=== PATIENT | female | born 1960 | race Asian ===

== ENCOUNTER 2018-12-12 10:27 | Inpatient (IN) | payer MEDICAID ==
[~2018-12-12] VITALS: Ht 154.9 cm; Wt 61.2 kg
--- NOTE | 2018-12-12 10:27 | NUR ---
ED Nurse Note: Patient brought in by ambulance to ED from home, patient is c/o having abdominal pain, nausea, vomiting, and room is spinning. patient denies having eye pain at this moment. blanket provided as patient states she is cold.
[2018-12-12] MEDS ORDERED: Meclizine 25mg tab ORAL ONE (10:45)
[2018-12-12 10:52] VITALS: BP 125/69
[2018-12-12 10:57] LABS: BASOPHILS % (AUTO) 1.4 % (0.0-2.0); EOSINOPHILS % (AUTO) 1.2 % (0.0-3.0); HEMATOCRIT 40.3 % (37.0-47.0); HEMOGLOBIN 13.9 G/DL (12.0-16.0); LYMPHOCYTES % (AUTO) 36.3 % (20.0-45.0); MEAN CORPUSCULAR VOLUME 92 FL (80-99); MONOCYTES % (AUTO) 4.3 % (1.0-10.0); NEUTROPHILS % (AUTO) 56.7 % (45.0-75.0); PLATELET COUNT 211 K/UL (150-450); RED BLOOD COUNT 4.37 M/UL (4.20-5.40); RED CELL DISTRIBUTION WIDTH 12.2 % (11.6-14.8); WHITE BLOOD COUNT 6.3 K/UL (4.8-10.8)
[2018-12-12 11:05] LABS: ANION GAP 10 mmol/L (5-15); BLOOD UREA NITROGEN 13 mg/dL (7-18); CALCIUM 8.7 MG/DL (8.5-10.1); CARBON DIOXIDE 24 MMOL/L (21-32); CHLORIDE 107 MMOL/L (98-107); CREATININE 0.7 MG/DL (0.55-1.30); POTASSIUM 4.5 MMOL/L (3.5-5.1); SODIUM 141 MMOL/L (136-145)
[2018-12-12 11:11] LABS: ALANINE AMINOTRANSFERASE 23 U/L (12-78); ALBUMIN 3.8 G/DL (3.4-5.0); ALBUMIN/GLOBULIN RATIO 1.1 (1.0-2.7); ALKALINE PHOSPHATASE 68 U/L (46-116); ASPARTATE AMINO TRANSFERASE 30 U/L (15-37); BILIRUBIN,TOTAL 0.5 MG/DL (0.2-1.0)
[2018-12-12 12:33] LABS: APPEARANCE,URINE CLEAR; BILIRUBIN, URINE NEGATIVE (NEGATIVE); COLOR,URINE PALE YELLOW; GLUCOSE, URINE (UA) NEGATIVE (NEGATIVE); KETONES,URINE NEGATIVE (NEGATIVE); LEUKOCYTE ESTERASE ,URINE 1+ (NEGATIVE); NITRITE,URINE NEGATIVE (NEGATIVE); PH,URINE 7 (4.5-8.0); PROTEIN,URINE NEGATIVE (NEGATIVE); UROBILINOGEN,URINE NORMAL MG/DL (0.0-1.0)
--- NOTE | 2018-12-12 13:00 | NUR ---
ED Nurse Note: patient went down for CT
--- NOTE | 2018-12-12 13:44 | Diagnostic Imaging Report ---
Indications: Headache and dizziness Technique: Spiral acquisitions obtained through the brain. Angled axial and coronal 5 x 5 mm slices were reconstructed. Total dose length product 1403.8 mGycm. CTDI vol(s) 70.38 mGy. Dose reduction achieved using automated exposure control Comparison: None. Findings: No acute intracranial hemorrhage or edema, mass effect, nor midline shift. Normal yang-white differentiation. Normal-sized ventricles and extra axial CSF spaces. Intact calvarium. The mastoids are clear. Visualized orbits and sinuses are unremarkable. Impression: Negative The CT scanner at [facility] is accredited by the [employer] and the scans are performed using protocols designed to limit radiation exposure to as low as reasonably achievable to attain images of sufficient resolution adequate for diagnostic evaluation.
[2018-12-12 14:22] VITALS: BP 121/72
--- NOTE | 2018-12-12 14:42 | NUR ---
ED Nurse Note: report given to erum rn at 4E. cleaning room pt is down to CT abd.
[2018-12-12] MEDS ORDERED: UNOBMED (14:49)
--- NOTE | 2018-12-12 14:49 | NUR ---
ED Nurse Note: patient came back from CT.
--- NOTE | 2018-12-12 14:58 | Emergency Room Report ---
History of Present Illness General Chief Complaint: Abdominal Pain Source: Patient, Medical Record, EMS Present Illness HPI Patient presents emergency department today complaining of abdominal discomfort and vertigo. Patient states that she was recently seen at [facility] where she was told that she might have retinal detachment. Patient went to see her supervisor corduroy cutting yesterday and was told that she had cataracts. Patient is post be scheduled for intervention. Patient develop acute onset of severe dizziness today. She describes intense vertigo worse with movement of her head. She has associated abdominal discomfort with nausea and vomiting. Denies any chest pain shortness of breath. Denies any dysuria urinary frequency or diarrhea. No other complaints were noted. Symptoms noted to be moderate to severe.No other modifying factors. No other associated signs and symptoms. No other complaints were noted. Allergies: Coded Allergies: No Known Allergies (Unverified , 12/12/18) Patient History Past Medical History: HTN, other - Cataracts Pertinent Family History: none Social History: Denies: smoking, alcohol use, drug use Reviewed Nursing Documentation: PMH: Agreed; PSxH: Agreed Review of Systems All Other Systems: negative except mentioned in HPI Physical Exam Vital Signs Date Time Temp Pulse Resp B/P (MAP) Pulse Ox O2 Delivery O2 Flow Rate FiO2 12/12/18 10:16 99.0 78 16 138/100 98 Room Air Sp02 EP Interpretation: reviewed, normal General Appearance: alert, severe distress Head: normocephalic, atraumatic ENT: normal ENT inspection, hearing grossly normal, normal voice Neck: normal inspection, full range of motion, supple, no bony tend Respiratory: normal inspection, lungs clear, normal breath sounds, no respiratory distress, no retraction, no wheezing Cardiovascular #1: regular rate, rhythm, no edema Gastrointestinal: normal inspection, normal bowel sounds, soft, no guarding, no hernia, tenderness - Epigastric Genitourinary: no CVA tenderness Musculoskeletal: normal inspection, back normal, normal range of motion Neurologic: normal inspection, alert, responsive, speech normal Psychiatric: normal inspection, judgement/insight normal, mood/affect normal Skin: normal inspection, normal color, no rash Medical Decision Making Diagnostic Impression: Primary Impression: Vertigo Additional Impression: Intractable vomiting ER Course Patient presents emergency department today complaining of vertigo. Differential considerations include CVA, benign positional vertigo, electrolyte abnormality, glaucoma just to name a few.Given the severity of the patient's presentation I felt this is a highly complex patient. This patient required extensive workup. Patient's laboratory workup was not impressive. Head CT was negative. Patient was given fluids and Valium as well as meclizine. Symptoms did improve the patient was still having difficulty with ambulation because of intense vertigo. Because of this intensity vertigo I felt the patient require admission. Case was discussed with admitting physician for further treatment. Patient will be admitted to [facility] further treatment. Labs Test 12/12/18 10:32 12/12/18 12:26 White Blood Count 6.3 K/UL (4.8-10.8) Red Blood Count 4.37 M/UL (4.20-5.40) Hemoglobin 13.9 G/DL (12.0-16.0) Hematocrit 40.3 % (37.0-47.0) Mean Corpuscular Volume 92 FL (80-99) Mean Corpuscular Hemoglobin 31.7 PG (27.0-31.0) Mean Corpuscular Hemoglobin Concent 34.4 G/DL (32.0-36.0) Red Cell Distribution Width 12.2 % (11.6-14.8) Platelet Count 211 K/UL (150-450) Mean Platelet Volume 6.6 FL (6.5-10.1) Neutrophils (%) (Auto) 56.7 % (45.0-75.0) Lymphocytes (%) (Auto) 36.3 % (20.0-45.0) Monocytes (%) (Auto) 4.3 % (1.0-10.0) Eosinophils (%) (Auto) 1.2 % (0.0-3.0) Basophils (%) (Auto) 1.4 % (0.0-2.0) Sodium Level 141 MMOL/L (136-145) Potassium Level 4.5 MMOL/L (3.5-5.1) Chloride Level 107 MMOL/L (98-107) Carbon Dioxide Level 24 MMOL/L (21-32) Anion Gap 10 mmol/L (5-15) Blood Urea Nitrogen 13 mg/dL (7-18) Creatinine 0.7 MG/DL (0.55-1.30) Estimat Glomerular Filtration Rate > 60 mL/min (>60) Glucose Level 140 MG/DL (74-106) Calcium Level 8.7 MG/DL (8.5-10.1) Total Bilirubin 0.5 MG/DL (0.2-1.0) Aspartate Amino Transf (AST/SGOT) 30 U/L (15-37) Alanine Aminotransferase (ALT/SGPT) 23 U/L (12-78) Alkaline Phosphatase 68 U/L (46-116) Troponin I 0.000 ng/mL (0.000-0.056) Total Protein 7.4 G/DL (6.4-8.2) Albumin 3.8 G/DL (3.4-5.0) Globulin 3.6 g/dL Albumin/Globulin Ratio 1.1 (1.0-2.7) Lipase 148 U/L (73-393) Urine Color Pale yellow Urine Appearance Clear Urine pH 7 (4.5-8.0) Urine Specific [place] 1.010 (1.005-1.035) Urine Protein Negative (NEGATIVE) Urine Glucose (UA) Negative (NEGATIVE) Urine Ketones Negative (NEGATIVE) Urine Blood Negative (NEGATIVE) Urine Nitrite Negative (NEGATIVE) Urine Bilirubin Negative (NEGATIVE) Urine Urobilinogen Normal MG/DL (0.0-1.0) Urine Leukocyte Esterase 1+ (NEGATIVE) Urine RBC 0 /HPF (0 - 2) Urine WBC 0-2 /HPF (0 - 2) Urine Squamous Epithelial Cells Occasional /LPF Urine Bacteria Occasional /HPF (NONE) EKG Diagnostic Results Rate: normal Rhythm: NSR ST Segments: no acute changes Rhythm Strip Diag. Results EP Interpretation: yes Rate: 60 Rhythm: NSR, no PVC's, no ectopy CT/MRI/US Diagnostic Results CT/MRI/US Diagnostic Results : Imaging Test Ordered: CT head: Negative Last Vital Signs Date Time Temp Pulse Resp B/P (MAP) Pulse Ox O2 Delivery O2 Flow Rate FiO2 12/12/18 14:22 99.0 66 17 121/72 98 Room Air Status: improved Disposition: ADMITTED INPATIENT Condition: Serious Referrals: NOT CHOSEN IPA/,REFERRING (PCP) Agusto Gleason MD Dec 12, 2018 14:58
--- NOTE | 2018-12-12 15:13 | NUR ---
ED Nurse Note: patient is being transferred to 4E with care techliz CHAVEZ, endorsed all belonging list/belongigns.
--- NOTE | 2018-12-12 15:20 | NUR ---
NURSE NOTES: Patient arrived the unite around 1515 by arlene; alert x4, on room air, no sign of distress and shortness of breath; no sign of chest pain; skin intact; IV L-Hand 20G flushes well; belonging lists singed by transferring nurse and receiving nurse; communicated Dr Rodney to get admission order. Bed at lowest position, side rails up x2, breaks engaged. call light within reach. will keep monitoring.
[2018-12-12 15:33] VITALS: BP 121/69
--- NOTE | 2018-12-12 16:25 | Consultation ---
History of Present Illness General Date patient seen: Dec 12, 2018 Time patient seen: 18:00 Chief Complaint: Intractable Vertigo Reason for Consultation: Vertigo, Nausea, Vomiting Present Illness HPI Tracy Fitch is a 58 year old woman with history of HTN, GERD who awoke this morning with acute onset of vertigo, nausea and vomiting. She describes intense vertigo worsened by movement of her head. Denies any chest pain shortness of breath. Denies any dysuria urinary frequency or diarrhea. Patient describes an episode several years ago of right unilateral weakness of face, arm and leg that self resolved and was not reported to her doctor at the time or subsequently. She denies any paresthesias, numbness, weakness, incoordination, vision or hearing changes Allergies: Coded Allergies: No Known Allergies (Unverified , 12/12/18) Medication History Miscellaneous Medications Unable to Obtain Medications (Unable To Obtain Meds), (Reported) Patient History History Provided By: Patient Healthcare decision maker Resuscitation status Full Code Advanced Directive on File No Past Medical/Surgical History Past Medical/Surgical History: (1) GERD (gastroesophageal reflux disease) (2) HTN (hypertension) Review of Systems Constitutional: Reports: malaise, weakness Eye: Reports: no symptoms ENT: Reports: no symptoms Respiratory: Reports: no symptoms Cardiovascular: Reports: no symptoms Gastrointestinal: Reports: abdominal pain, nausea, vomiting Genitourinary: Reports: no symptoms Musculoskeletal: Reports: see HPI Skin: Reports: no symptoms Psychiatric: Reports: no symptoms Neurological: Reports: dizziness Endocrine: Reports: no symptoms Hematologic/Lymphatic: Reports: no symptoms Physical Exam General Appearance: WD/WN, no apparent distress, alert Lines, tubes and drains: peripheral HEENT: normocephalic, atraumatic, anicteric, mucous membranes moist, PERRL, EOMI, pharynx normal, supple, no JVD, other - NO nystagmus on exam or elicited on Hallpike maneuver. Neck: non-tender, normal alignment, supple, normal inspection Respiratory/Chest: chest wall non-tender, normal breath sounds Cardiovascular/Chest: normal peripheral pulses, normal rate Extremities: normal range of motion, non-tender, normal inspection, no calf tenderness, normal capillary refill, no edema Skin Exam: normal pigmentation, warm/dry Neurologic: facilities operator II-XII grossly normal, no motor/sensory deficits, alert, oriented x 3, responsive, normal mood/affect, motor weakness - Mild LUE/ LLE weakness 4/5, other - Normal heel to beltran but some dysmetria on FTN with left hand/ arm. Musculoskeletal: normal muscle bulk Last 24 Hour Vital Signs Date Time Temp Pulse Resp B/P (MAP) Pulse Ox O2 Delivery O2 Flow Rate FiO2 12/12/18 15:43 Room Air 12/12/18 15:33 98.2 63 18 121/69 (86) 98 12/12/18 15:18 99.0 66 17 121/72 98 Room Air 12/12/18 14:22 99.0 66 17 121/72 98 Room Air 12/12/18 10:54 61 20 Room Air 12/12/18 10:52 99.0 61 20 125/69 99 Room Air 12/12/18 10:16 99.0 78 16 138/100 98 Room Air Laboratory Tests Test 12/12/18 10:32 12/12/18 12:26 White Blood Count 6.3 K/UL (4.8-10.8) Red Blood Count 4.37 M/UL (4.20-5.40) Hemoglobin 13.9 G/DL (12.0-16.0) Hematocrit 40.3 % (37.0-47.0) Mean Corpuscular Volume 92 FL (80-99) Mean Corpuscular Hemoglobin 31.7 PG (27.0-31.0) H Mean Corpuscular Hemoglobin Concent 34.4 G/DL (32.0-36.0) Red Cell Distribution Width 12.2 % (11.6-14.8) Platelet Count 211 K/UL (150-450) Mean Platelet Volume 6.6 FL (6.5-10.1) Neutrophils (%) (Auto) 56.7 % (45.0-75.0) Lymphocytes (%) (Auto) 36.3 % (20.0-45.0) Monocytes (%) (Auto) 4.3 % (1.0-10.0) Eosinophils (%) (Auto) 1.2 % (0.0-3.0) Basophils (%) (Auto) 1.4 % (0.0-2.0) Sodium Level 141 MMOL/L (136-145) Potassium Level 4.5 MMOL/L (3.5-5.1) Chloride Level 107 MMOL/L (98-107) Carbon Dioxide Level 24 MMOL/L (21-32) Anion Gap 10 mmol/L (5-15) Blood Urea Nitrogen 13 mg/dL (7-18) Creatinine 0.7 MG/DL (0.55-1.30) Estimat Glomerular Filtration Rate > 60 mL/min (>60) Glucose Level 140 MG/DL (74-106) H Calcium Level 8.7 MG/DL (8.5-10.1) Total Bilirubin 0.5 MG/DL (0.2-1.0) Aspartate Amino Transf (AST/SGOT) 30 U/L (15-37) Alanine Aminotransferase (ALT/SGPT) 23 U/L (12-78) Alkaline Phosphatase 68 U/L (46-116) Troponin I 0.000 ng/mL (0.000-0.056) Total Protein 7.4 G/DL (6.4-8.2) Albumin 3.8 G/DL (3.4-5.0) Globulin 3.6 g/dL Albumin/Globulin Ratio 1.1 (1.0-2.7) Lipase 148 U/L (73-393) Urine Color Pale yellow Urine Appearance Clear Urine pH 7 (4.5-8.0) Urine Specific [place] 1.010 (1.005-1.035) Urine Protein Negative (NEGATIVE) Urine Glucose (UA) Negative (NEGATIVE) Urine Ketones Negative (NEGATIVE) Urine Blood Negative (NEGATIVE) Urine Nitrite Negative (NEGATIVE) Urine Bilirubin Negative (NEGATIVE) Urine Urobilinogen Normal MG/DL (0.0-1.0) Urine Leukocyte Esterase 1+ (NEGATIVE) H Urine RBC 0 /HPF (0 - 2) Urine WBC 0-2 /HPF (0 - 2) Urine Squamous Epithelial Cells Occasional /LPF Urine Bacteria Occasional /HPF (NONE) Height (Feet): 5 Height (Inches): 1.00 Weight (Pounds): 135 Objective Narrative Unable to perform standard [place] Hallpike but modified did not yield increased vertigo or nystagmus . Due to generalized weakness/ malaise was unable to get out of bed and perform gait assessment. Assessment/Plan Problem List: (1) Vertigo Assessment & Plan: Improving now. Continue IVH and antiemetics (Ondansetron/ Meclizine) MRI Brain w/wo contrast for central causes of acute vertigo ICD Codes: R42 - Dizziness and giddiness SNOMED: 859366670 (2) Intractable vomiting Assessment & Plan: Ate dinner and has not vomited since earlier in the day. Continue IVH, antiemetics (Ondasetron/ Meclizine) ICD Codes: R11.10 - Vomiting, unspecified SNOMED: 549705470 Qualifiers: (3) HTN (hypertension) Assessment & Plan: Control BP and maintain < 140/90 ICD Codes: I10 - Essential (primary) hypertension SNOMED: 23480880 Qualifiers: Qualified Codes: I10 - Essential (primary) hypertension (4) TIA (transient ischemic attack) Assessment & Plan: Reported past episode of several hours of face, arm and leg weakness on her right side but states that she never reported it. MRI Brain to r/o acute CVA ICD Codes: G45.9 - Transient cerebral ischemic attack, unspecified SNOMED: 127010961 Status: doing well Pamela Hu N.P. Dec 12, 2018 16:25
--- NOTE | 2018-12-12 16:29 | Diagnostic Imaging Report ---
Indication: Abdominal pain, nausea, vomiting Technique: Spiral acquisitions obtained through the abdomen and pelvis. No oral contrast utilized, per emergency room physician request No IV contrast utilized, per emergency room physician request.. Multiplanar reconstructions were generated. Total dose length product 682.95 mGycm. CTDIvol(s) 13.88 mGy. Dose reduction achieved using automated exposure control Comparison: None Findings: Lack of enteric contrast limits assessment of the GI tract. The appendix is normal. No evidence of diverticulosis or diverticulitis. No small bowel distention. No free or loculated intraperitoneal gas or fluid. Distal esophagus, stomach, duodenum are unremarkable. Lack of IV contrast limits assessment of solid organs. The liver, gallbladder, bile ducts, pancreas, spleen, adrenals, kidneys are all unremarkable. No retroperitoneal or mesenteric mass or adenopathy. No pelvic mass or adenopathy. Uterus and adnexal structures are unremarkable. The bladder is unremarkable. The included lung bases are clear. The bones demonstrated a small bone island within the right posterior ninth rib. There is bilateral L5 spondylolysis. There is minimal spondylolisthesis of L5 on S1. Impression: Limited assessment of the GI tract, due to lack of enteric contrast administration. No definite acute abnormality Bilateral L5 spondylolysis, minimal L5 on S1 grade [address] scanner at [facility] is accredited by the [employer] and the scans are performed using protocols designed to limit radiation exposure to as low as reasonably achievable to attain images of sufficient resolution adequate for diagnostic evaluation.
[2018-12-12] MEDS ORDERED: Milk of Magnesia 30ml Ud ORAL PRN (16:45)
--- NOTE | 2018-12-12 16:45 | History and Physical ---
History of Present Illness General Date patient seen: Dec 12, 2018 Time patient seen: 15:05 Reason for Hospitalization: Abdominal Pain Present Illness HPI 58 year old woman with history of HTN, GERD who presents with nausea and abdominal discomfort along with vertigo that started this mronign Patient states that she was recently seen at [facility] where she was told that she might have retinal detachment. Patient went to see her gasoline engine assembler yesterday and was told that she had cataracts. Patient developed acute onset of severe dizziness today. She describes intense vertigo worse with movement of her head. She has associated abdominal discomfort with nausea and vomiting. Denies any chest pain shortness of breath. Denies any dysuria urinary frequency or diarrhea. No other complaints were noted. Symptoms noted to be moderate to severe.No other modifying factors. No other associated signs and symptoms. No other complaints were noted. Social History: No alcohol or tobacco Family History: No CAD or stroke Allergies: Coded Allergies: No Known Allergies (Unverified , 12/12/18) Medication History Miscellaneous Medications Unable to Obtain Medications (Unable To Obtain Meds), (Reported) Patient History Healthcare decision maker Resuscitation status Advanced Directive on File No Review of Systems Constitutional: Denies: chills, sweats, fever Eye: Denies: eye pain, tearing ENT: Denies: ear pain Respiratory: Denies: cough Cardiovascular: Denies: chest pain Gastrointestinal: Reports: abdominal pain, nausea, vomiting Musculoskeletal: Denies: back pain Skin: Denies: rash Neurological: Reports: dizziness; Denies: headache Physical Exam General Appearance: no apparent distress, alert HEENT: atraumatic, anicteric Neck: normal alignment, supple, normal inspection Respiratory/Chest: lungs clear, normal breath sounds Cardiovascular/Chest: normal rate, regular rhythm Abdomen: non tender, soft, no organomegaly Extremities: non-tender, normal inspection, no calf tenderness 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3 % (37.0-47.0) Mean Corpuscular Volume 92 FL (80-99) Mean Corpuscular Hemoglobin 31.7 PG (27.0-31.0) H Mean Corpuscular Hemoglobin Concent 34.4 G/DL (32.0-36.0) Red Cell Distribution Width 12.2 % (11.6-14.8) Platelet Count 211 K/UL (150-450) Mean Platelet Volume 6.6 FL (6.5-10.1) Neutrophils (%) (Auto) 56.7 % (45.0-75.0) Lymphocytes (%) (Auto) 36.3 % (20.0-45.0) Monocytes (%) (Auto) 4.3 % (1.0-10.0) Eosinophils (%) (Auto) 1.2 % (0.0-3.0) Basophils (%) (Auto) 1.4 % (0.0-2.0) Sodium Level 141 MMOL/L (136-145) Potassium Level 4.5 MMOL/L (3.5-5.1) Chloride Level 107 MMOL/L (98-107) Carbon Dioxide Level 24 MMOL/L (21-32) Anion Gap 10 mmol/L (5-15) Blood Urea Nitrogen 13 mg/dL (7-18) Creatinine 0.7 MG/DL (0.55-1.30) Estimat Glomerular Filtration Rate > 60 mL/min (>60) Glucose Level 140 MG/DL (74-106) H Calcium Level 8.7 MG/DL (8.5-10.1) Total Bilirubin 0.5 MG/DL (0.2-1.0) Aspartate Amino Transf (AST/SGOT) 30 U/L (15-37) Alanine Aminotransferase (ALT/SGPT) 23 U/L (12-78) Alkaline Phosphatase 68 U/L (46-116) Troponin I 0.000 ng/mL (0.000-0.056) Total Protein 7.4 G/DL (6.4-8.2) Albumin 3.8 G/DL (3.4-5.0) Globulin 3.6 g/dL Albumin/Globulin Ratio 1.1 (1.0-2.7) Lipase 148 U/L (73-393) Urine Color Pale yellow Urine Appearance Clear Urine pH 7 (4.5-8.0) Urine Specific [place] 1.010 (1.005-1.035) Urine Protein Negative (NEGATIVE) Urine Glucose (UA) Negative (NEGATIVE) Urine Ketones Negative (NEGATIVE) Urine Blood Negative (NEGATIVE) Urine Nitrite Negative (NEGATIVE) Urine Bilirubin Negative (NEGATIVE) Urine Urobilinogen Normal MG/DL (0.0-1.0) Urine Leukocyte Esterase 1+ (NEGATIVE) H Urine RBC 0 /HPF (0 - 2) Urine WBC 0-2 /HPF (0 - 2) Urine Squamous Epithelial Cells Occasional /LPF Urine Bacteria Occasional /HPF (NONE) Height (Feet): 5 Height (Inches): 1.00 Weight (Pounds): 135 Medications Current Medications Medications (Trade) Dose Ordered Sig/Lexus Route PRN Reason Start Time Stop Time Status Last Admin Dose Admin Acetaminophen (Tylenol) 650 mg Q4H PRN ORAL Mild Pain (Pain Scale 1-3) 12/12/18 16:45 01/11/19 16:44 UNV Dextrose (Dextrose 50%) 25 ml Q30M PRN IV Hypoglycemia 12/12/18 16:45 01/11/19 16:44 UNV Dextrose (Dextrose 50%) 50 ml Q30M PRN IV Hypoglycemia 12/12/18 16:45 01/11/19 16:44 UNV Docusate Sodium (Colace) 100 mg EVERY 12 HOURS ORAL 12/12/18 21:00 01/11/19 20:59 UNV Heparin Sodium (Porcine) (Heparin 5000 units/ml) 5,000 units EVERY 12 HOURS SUBQ 12/12/18 21:00 01/11/19 20:59 UNV Magnesium Hydroxide (Mom) 30 ml HSPRN PRN ORAL Constipation 12/12/18 16:45 01/11/19 16:44 UNV Ondansetron HCl (Zofran) 4 mg Q6H PRN IVP Nausea & Vomiting 12/12/18 16:45 01/11/19 16:44 UNV Assessment/Plan Assessment/Plan 58 year old woman with GERD, HTN who presents with intractable vertigo #Intractable vertigo -admit to medical service -supportive care with IV fluids, anti-emetics, meclizine -Neurology consulted -PT/OT consult #GERD #Nausea vomiting and GI discomfort, non contrast CT negative -supportive care -IV fluids, anti-emetics, Protonix #History of HTN, controlled -continue to monitor pressures -awaiting home med list VTEE PPx heparin Full Code Sánchez Gillis MD Dec 12, 2018 16:45
[2018-12-12] MEDS ORDERED: Meclizine 25mg tab ORAL SCH (17:00)
[2018-12-12] MEDS ORDERED: Gadavist 7.5mMol/7.5ml vial IV PRN (19:30)
--- NOTE | 2018-12-12 19:36 | NUR ---
HAND-OFF: Report given to YOUSIF Carlin.
--- NOTE | 2018-12-12 19:44 | NUR ---
NURSE NOTES: Received patient comfortably sleeping without any complaints.
[2018-12-12 20:00] VITALS: BP 92/65
[2018-12-12] MEDS: Heparin 5000 units/ml inj SUBQ SCH (20:39)
[2018-12-12] MEDS: Docusate 100mg cap ORAL SCH (20:39)
[2018-12-13] VITALS: BP 95/61
[2018-12-13] MEDS: Meclizine 25mg tab ORAL SCH ×5 (00:45→23:06)
--- NOTE | 2018-12-13 01:42 | Neurology Progress Note ---
Interim History Interim History ROS Limited/Unobtainable: No Complaints: Vertigo Events: Some nausea/vomiting before breakfast but none after into late afternoon. Review of Systems Neuro Review of Systems Continues to endorse vertigo/ nausea/ dizziness Objective Physical Exam Last Vital Signs Date Time Temp Pulse Resp B/P (MAP) Pulse Ox O2 Delivery O2 Flow Rate FiO2 12/13/18 00:00 97.6 55 18 95/61 (72) 97 12/12/18 20:04 Room Air Laboratory Tests Test 12/12/18 10:32 12/12/18 12:26 White Blood Count 6.3 K/UL (4.8-10.8) Red Blood Count 4.37 M/UL (4.20-5.40) Hemoglobin 13.9 G/DL (12.0-16.0) Hematocrit 40.3 % (37.0-47.0) Mean Corpuscular Volume 92 FL (80-99) Mean Corpuscular Hemoglobin 31.7 PG (27.0-31.0) H Mean Corpuscular Hemoglobin Concent 34.4 G/DL (32.0-36.0) Red Cell Distribution Width 12.2 % (11.6-14.8) Platelet Count 211 K/UL (150-450) Mean Platelet Volume 6.6 FL (6.5-10.1) Neutrophils (%) (Auto) 56.7 % (45.0-75.0) Lymphocytes (%) (Auto) 36.3 % (20.0-45.0) Monocytes (%) (Auto) 4.3 % (1.0-10.0) Eosinophils (%) (Auto) 1.2 % (0.0-3.0) Basophils (%) (Auto) 1.4 % (0.0-2.0) Sodium Level 141 MMOL/L (136-145) Potassium Level 4.5 MMOL/L (3.5-5.1) Chloride Level 107 MMOL/L (98-107) Carbon Dioxide Level 24 MMOL/L (21-32) Anion Gap 10 mmol/L (5-15) Blood Urea Nitrogen 13 mg/dL (7-18) Creatinine 0.7 MG/DL (0.55-1.30) Estimat Glomerular Filtration Rate > 60 mL/min (>60) Glucose Level 140 MG/DL (74-106) H Calcium Level 8.7 MG/DL (8.5-10.1) Total Bilirubin 0.5 MG/DL (0.2-1.0) Aspartate Amino Transf (AST/SGOT) 30 U/L (15-37) Alanine Aminotransferase (ALT/SGPT) 23 U/L (12-78) Alkaline Phosphatase 68 U/L (46-116) Troponin I 0.000 ng/mL (0.000-0.056) Total Protein 7.4 G/DL (6.4-8.2) Albumin 3.8 G/DL (3.4-5.0) Globulin 3.6 g/dL Albumin/Globulin Ratio 1.1 (1.0-2.7) Lipase 148 U/L (73-393) Urine Color Pale yellow Urine Appearance Clear Urine pH 7 (4.5-8.0) Urine Specific Alpine 1.010 (1.005-1.035) Urine Protein Negative (NEGATIVE) Urine Glucose (UA) Negative (NEGATIVE) Urine Ketones Negative (NEGATIVE) Urine Blood Negative (NEGATIVE) Urine Nitrite Negative (NEGATIVE) Urine Bilirubin Negative (NEGATIVE) Urine Urobilinogen Normal MG/DL (0.0-1.0) Urine Leukocyte Esterase 1+ (NEGATIVE) H Urine RBC 0 /HPF (0 - 2) Urine WBC 0-2 /HPF (0 - 2) Urine Squamous Epithelial Cells Occasional /LPF Urine Bacteria Occasional /HPF (NONE) General: well developed, well nourished Head: normocophalic Neck: no rigidity EENT: benign Neurologic Exam Mental Status: awake, alert, oriented x4, normal cognition, normal recent memory Speech: normal speech Language: normal language, no aphasia Cranial Nerve II: visual barnes Cranial Nerves III, IV, : PERRLA, EOMI Cranial Nerve V: normal facial sensations Cranial Nerve VII: no facial asymmetry Cranial Nerve VIII: normal hearing Cranial Nerve IX: normal palate elevation Cranial Nerve X: no voice hoarseness Cranial Nerve XI: SCM symmetric Cranial Nerve XII: tongue midline Motor System: normal muscle tone, strength 5/5 Coordination: normal finger to nose bilaterally, normal heel to beltran bilaterally Impression/Recommendations Problems: (1) Vertigo Assessment & Plan: Stable but still present, mildly. Continue IVH and antiemetics (Ondansetron/ Meclizine) MRI with mildly depressed cerebellar tonsils- discuss with radiology for exact length of depression. (2) Intractable vomiting Assessment & Plan: Continue IVH, antiemetics (Ondasetron/ Meclizine) (3) HTN (hypertension) Assessment & Plan: Control BP and maintain < 140/90 (4) TIA (transient ischemic attack) Assessment & Plan: Reported past episode of several hours of face, arm and leg weakness on her right side but states that she never reported it. No evidence of acute CVA Status: doing well Diagnostic Impression Get up with PT/OT for eval Discuss MRI with radiology re Cerebellar tonsil finding Continue Q4 Hr Neuro Obs Antiemetics and IVH Recommendations At minimum will need to follow up with Neuro as outpatient and MRI repeat again in 1 year. PT/OT Eval for safe ambulation Pamela Jose N.P. Dec 13, 2018 01:42
[2018-12-13 04:13] VITALS: BP 92/59
--- NOTE | 2018-12-13 07:17 | NUR ---
HAND-OFF: Report given to Josseline Scott RN.
--- NOTE | 2018-12-13 07:29 | NUR ---
NURSE NOTES: Patient alert x4, on room air, no sign of shortness of breath; no sign of distress; no sign of chest pain; IV Left-Hand, flushes well; bed at lowest position, side rails up x2, breaks engaged; call light within reach; will keep monitoring.
[2018-12-13 07:37] LABS: ANION GAP 10 mmol/L (5-15); BLOOD UREA NITROGEN 12 mg/dL (7-18); CALCIUM 8.6 MG/DL (8.5-10.1); CARBON DIOXIDE 27 MMOL/L (21-32); CHLORIDE 106 MMOL/L (98-107); CREATININE 0.8 MG/DL (0.55-1.30); POTASSIUM 3.6 MMOL/L (3.5-5.1); SODIUM 143 MMOL/L (136-145)
[2018-12-13 07:43] LABS: BASOPHILS % (AUTO) 0.9 % (0.0-2.0); EOSINOPHILS % (AUTO) 1.3 % (0.0-3.0); HEMOGLOBIN 12.8 G/DL (12.0-16.0); LYMPHOCYTES % (AUTO) 39.6 % (20.0-45.0); MEAN CORPUSCULAR VOLUME 93 FL (80-99); MONOCYTES % (AUTO) 5.8 % (1.0-10.0); NEUTROPHILS % (AUTO) 52.5 % (45.0-75.0); PLATELET COUNT 218 K/UL (150-450); RED CELL DISTRIBUTION WIDTH 11.8 % (11.6-14.8); WHITE BLOOD COUNT 6.1 K/UL (4.8-10.8)
[2018-12-13 08:00] VITALS: BP 95/64
[2018-12-13] MEDS: Docusate 100mg cap ORAL SCH ×2 (08:38→20:09)
[2018-12-13] MEDS: Heparin 5000 units/ml inj SUBQ SCH ×2 (08:40→20:16)
[2018-12-13] MEDS: Pantoprazole Inj IVP SCH (09:28)
--- NOTE | 2018-12-13 09:40 | NUR ---
PT EVALUATION NOTE Patient seen for initial evaluation, see complete evaluation for details. Patient presents with generalized weakness and impaired functional mobility. Patient will benefit from skilled inpatient PT intervention to address strength, balance, safety, endurance and functional mobility. Anticipate discharge home once cleared by MD. No DME needs anticipated at this time. Addendum: 12/13/18 at 1319 by RENITA BISHOP PT Amended: Links added.
[2018-12-13 12:00] VITALS: BP 93/57
--- NOTE | 2018-12-13 12:02 | NUR ---
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 INTRACTABLE VOMITING VS: BP 138/100, P 78, T 99.0, RR 16, SpO2 98 RBC 4.10, Glucose 140 IS:ANTIVERT 25mg VALIUM 10mg NS x1L IV ZOFRAN 4mg IVP ADMITTED TO MED/SURG DC PLAN: RETURN HOME
--- NOTE | 2018-12-13 12:57 | General Progress Note ---
Assessment/Plan Assessment/Plan 58 year old woman with GERD, HTN who presents with intractable vertigo #Intractable vertigo, improved -continue supportive care with IV fluids, anti-emetics, meclizine -Neurology consult appreciated, MRI brain ordered -PT/OT eval #GERD #Nausea vomiting and GI discomfort, non contrast CT negative -continue supportive care -IV fluids, anti-emetics, Protonix #History of HTN, controlled -continue to monitor pressures -awaiting home med list VTEE PPx heparin Full Code Subjective Date patient seen: Dec 13, 2018 Time patient seen: 09:45 ROS Limited/Unobtainable: No Constitutional: Denies: chills, fever Cardiovascular: Denies: chest pain, edema, irregular heart rate, lightheadedness, palpitations Respiratory: Denies: cough, orthopnea, shortness of breath Gastrointestinal/Abdominal: Denies: abdomen distended, abdominal pain Genitourinary: Denies: burning, discharge Neurologic/Psychiatric: Denies: anxiety Endocrine: Denies: excessive sweating Hematologic/Lymphatic: Denies: anemia Allergies: Coded Allergies: No Known Allergies (Unverified , 12/12/18) Subjective Medicine follow up for vertigo and nausea. Vertigo symptoms improved but vomited after breakfast today. Objective Last 24 Hour Vital Signs Date Time Temp Pulse Resp B/P (MAP) Pulse Ox O2 Delivery O2 Flow Rate FiO2 12/13/18 12:00 98.4 54 19 93/57 (69) 94 12/13/18 09:00 Room Air 12/13/18 08:00 98.2 57 18 95/64 (74) 95 12/13/18 04:13 97.7 54 17 92/59 (70) 97 12/13/18 00:00 97.6 55 18 95/61 (72) 97 12/12/18 20:04 Room Air 12/12/18 20:00 98.1 61 20 92/65 (74) 96 12/12/18 17:00 62 75 79 12/12/18 15:43 Room Air 12/12/18 15:33 98.2 63 18 121/69 (86) 98 12/12/18 15:18 99.0 66 17 121/72 98 Room Air 12/12/18 14:22 99.0 66 17 121/72 98 Room Air Intake and Output 12/12/18 12/13/18 19:00 07:00 Intake Total 240 ml Balance 240 ml Intake Oral 240 ml # Voids 1 Laboratory Tests 12/13/18 05:15: White Blood Count 6.1, Red Blood Count 4.10L, Hemoglobin 12.8, Hematocrit 38.0, Mean Corpuscular Volume 93, Mean Corpuscular Hemoglobin 31.3H, Mean Corpuscular Hemoglobin Concent 33.7, Red Cell Distribution Width 11.8, Platelet Count 218, Mean Platelet Volume 6.4L, Neutrophils (%) (Auto) 52.5, Lymphocytes (%) (Auto) 39.6, Monocytes (%) (Auto) 5.8, Eosinophils (%) (Auto) 1.3, Basophils (%) (Auto ) 0.9, Sodium Level 143, Potassium Level 3.6, Chloride Level 106, Carbon Dioxide Level 27, Anion Gap 10, Blood Urea Nitrogen 12, Creatinine 0.8, Estimat Glomerular Filtration Rate > 60, Glucose Level 84, Calcium Level 8.6, Thyroid Stimulating Hormone (TSH) 1.541 Height (Feet): 5 Height (Inches): 1.00 Weight (Pounds): 135 General Appearance: no apparent distress, alert Neck: non-tender, normal alignment Cardiovascular: normal rate, regular rhythm Respiratory/Chest: lungs clear, no respiratory distress Abdomen: non tender, soft Extremities: non-tender, normal inspection Sánchez Gillis MD Dec 13, 2018 12:57
--- NOTE | 2018-12-13 13:50 | NUR ---
NURSE NOTES: Patient left the floor for MRI.
--- NOTE | 2018-12-13 15:45 | Diagnostic Imaging Report ---
Indication: Nausea, vomiting, vertigo, headache Technique: sagittal T1 fast spin echo, axial T1 and T2 FLAIR PROPELLER, axial T2 FS PROPELLER, T2* GRE, axial diffusion weighted images, post contrast axial and coronal T1 FLAIR PROPELLER images. ADC and exponential ADC maps generated Comparison: CT scan of the brain 12/12/2018 Findings: . No abnormal areas of restricted diffusion to suggest acute infarction. No acute hemorrhage or edema. No mass effect nor midline shift. No abnormal contrast enhancement. Normal size ventricles and extra axial CSF spaces. Visualized orbits and sinuses are unremarkable. The vascular flow voids are preserved. Cerebellar tonsils are somewhat low-lying but not frankly herniated.. Impression: Negative No evidence of acute intracranial bleed, mass effect, infarct, or contrast enhancing lesion
[2018-12-13 16:00] VITALS: BP 94/66
--- NOTE | 2018-12-13 19:38 | NUR ---
HAND-OFF: Report given to YOUSIF Sotomayor.
[2018-12-13 20:00] VITALS: BP 105/59
--- NOTE | 2018-12-13 20:30 | NUR ---
NURSE NOTES: Pt is in bed, awake and alert. No acute distress noted. Pt complains of dizziness, nausea. Zofran 4mg IVP given as ordered PRN. Pt was instructed to call for assistance before getting out of bed and ambulating. Pt is requesting hamburger and coke, pt was reminded that she is on clear liquid diet. Bed low in position,side rails up and call light within reach. Pt will be monitored.
[2018-12-14] VITALS: BP 93/60
[2018-12-14 04:00] VITALS: BP 101/63
--- NOTE | 2018-12-14 04:00 | NUR ---
NURSE NOTES: Pt is in bed, Asleep. NO acute distress noted. Vitals stable.
[2018-12-14] MEDS: Meclizine 25mg tab ORAL SCH ×4 (05:58→23:04)
--- NOTE | 2018-12-14 07:20 | NUR ---
HAND-OFF: Report given to Jayden Oro RN. Pt is in bed, awake and alert. No distress noted.
[2018-12-14 08:00] VITALS: BP 100/55
--- NOTE | 2018-12-14 08:00 | NUR ---
NURSE NOTES: pt in bed with no sob nor in any form of distress noted. no episode of vertigo at this time. bed in lowest position. call light within reach at all time. will continue to monitor
[2018-12-14] MEDS: Pantoprazole Inj IVP SCH (08:25)
[2018-12-14] MEDS: Docusate 100mg cap ORAL SCH ×2 (08:25→21:01)
[2018-12-14] MEDS: Heparin 5000 units/ml inj SUBQ SCH ×2 (08:29→21:06)
--- NOTE | 2018-12-14 09:49 | General Progress Note ---
Assessment/Plan Assessment/Plan 58 year old woman with GERD, HTN who presents with intractable vertigo #Intractable vertigo, improved -continue supportive care with IV fluids, anti-emetics, meclizine -MRI brain results without acute findings -Neurology following -PT/OT eval #GERD #Nausea vomiting and GI discomfort, non contrast CT negative -improving -continue supportive care -IV fluids, anti-emetics, Protonix -Advance diet to regular today #History of HTN, controlled -continue to monitor pressures VTE PPx heparin Full Code Subjective Date patient seen: Dec 14, 2018 Time patient seen: 09:45 ROS Limited/Unobtainable: No Constitutional: Denies: chills, fever Cardiovascular: Denies: chest pain, edema Respiratory: Denies: cough, orthopnea Gastrointestinal/Abdominal: Reports: nausea; Denies: abdominal pain, vomiting Genitourinary: Denies: burning Neurologic/Psychiatric: Denies: depressed Allergies: Coded Allergies: No Known Allergies (Unverified , 12/12/18) Subjective Medicine follow up for vertigo and nausea. Symptoms improving, ambulating independently but does not feel well enough to go home yet. Objective Last 24 Hour Vital Signs Date Time Temp Pulse Resp B/P (MAP) Pulse Ox O2 Delivery O2 Flow Rate FiO2 12/14/18 09:06 Room Air 12/14/18 08:00 98.4 57 16 100/55 (70) 96 12/14/18 04:00 97.5 50 16 101/63 (76) 96 12/14/18 00:00 98.2 50 17 93/60 (71) 97 12/13/18 21:00 Room Air 12/13/18 20:00 98.7 50 16 105/59 (74) 97 12/13/18 16:00 98.2 55 19 94/66 (75) 95 12/13/18 12:00 98.4 54 19 93/57 (69) 94 Intake and Output 12/13/18 12/14/18 18:59 06:59 Intake Total 1200 ml Balance 1200 ml Intake Oral 1200 ml # Voids 3 2 Height (Feet): 5 Height (Inches): 1.00 Weight (Pounds): 135 General Appearance: no apparent distress, alert Neck: supple, normal inspection Cardiovascular: normal peripheral pulses, normal rate, regular rhythm Respiratory/Chest: lungs clear, normal breath sounds Abdomen: non tender, soft Molazadeh-Yazdi,Sánchez MD Dec 14, 2018 09:49
[2018-12-14 11:26] VITALS: BP 116/79
--- NOTE | 2018-12-14 15:02 | NUR ---
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 INTRACTABLE VOMITING VS: BP 93/60, P 50, T 97.5, RR 16, SpO2 98 IS: PROTONIX 40mg IVP ANTIVERT 25mg HEPARIN SUBQ MED/SURG STATUS
--- NOTE | 2018-12-14 15:47 | Neurology Progress Note ---
Interim History Interim History ROS Limited/Unobtainable: No Complaints: Vertigo Events: No vomiting today. Ambulating and eating. Some neck spasm and pain. Interim History No new or worsening symptoms today, with near resolution of vertigo, patient is ambulatory. Objective Physical Exam Last Vital Signs Date Time Temp Pulse Resp B/P (MAP) Pulse Ox O2 Delivery O2 Flow Rate FiO2 12/14/18 11:26 98.0 63 16 116/79 (91) 98 12/14/18 09:06 Room Air General: well developed, well nourished Head: normocophalic Neck: no rigidity EENT: benign Neurologic Exam Mental Status: awake, alert, oriented x4, normal cognition, normal recent memory Speech: normal speech Language: normal language, no aphasia Cranial Nerve II: visual barnes Cranial Nerves III, IV, : PERRLA, EOMI Cranial Nerve V: normal facial sensations Cranial Nerve VII: no facial asymmetry Cranial Nerve VIII: normal hearing Cranial Nerve IX: normal palate elevation Cranial Nerve X: no voice hoarseness Cranial Nerve XI: SCM symmetric Cranial Nerve XII: tongue midline Motor System: normal muscle tone, strength 5/5 Coordination: normal finger to nose bilaterally, normal heel to beltran bilaterally, negative Romberg test Stance: normal Gait: stable, heel + toe gait - A little shaky but able to do, other - Broad based gait Impression/Recommendations Problems: (1) Vertigo Assessment & Plan: Nearly resolved with patient ambulatory. Discussed seeking care if these symptoms reoccur and follow up with her PCP. She may take a prescription home of meclizine (25-100mg divided bid-tid) as needed, if she has any ongoing symptoms. MRI with mildly depressed cerebellar tonsils- discuss with radiology for exact length of depression. Unable to reach anyone in radiology- called twice. Old number listed on report- no longer in service and no voicemail for new number available. (2) Intractable vomiting Assessment & Plan: Resolved. (3) HTN (hypertension) Assessment & Plan: Control BP and maintain < 140/90 (4) TIA (transient ischemic attack) Assessment & Plan: Reported past episode of several hours of face, arm and leg weakness on her right side but states that she never reported it. No evidence of acute CVA on MRI. (5) Muscle spasms of neck Assessment & Plan: Recommend 3-5 day trial of spasmolytic. Will prescribed Flexeril 10mg TID. May send home with limited rx if relief from this overnight. Okay for discharge from a neurological perspective. Instructions given to patient to follow up with MRI Brain again in 1 year as well as follow up with primary. Status: doing well Diagnostic Impression Get up with PT/OT for eval Discuss MRI with radiology re Cerebellar tonsil finding Continue Q4 Hr Neuro Obs Antiemetics and IVH Recommendations At minimum will need to follow up with Neuro as outpatient and MRI repeat again in 1 year. Okay for discharge from a neurological perspective. Pamela Hu N.P. Dec 14, 2018 15:47
[2018-12-14 16:00] VITALS: BP 105/74
[2018-12-14] MEDS ORDERED: Cyclobenzaprine 10mg Tab ORAL PRN (16:30)
--- NOTE | 2018-12-14 19:27 | NUR ---
HAND-OFF: Report given to YOUSIF Beltran.
--- NOTE | 2018-12-14 19:45 | NUR ---
NURSE NOTES: PATIENT IN BED, IN STABLE CONDITION. ON RA, NO SOB, NO ACUTE DISTRESS, NO C/O PAIN. L HAND SALINE LOCK INTACT, PATENT. BED IN LOWEST POSITION, LOCKED, ALARMS ON. CALL LIGHT IN REACH.
[2018-12-14 20:00] VITALS: BP 108/72
[2018-12-15] VITALS: BP 97/63
[2018-12-15 04:00] VITALS: BP 109/66
[2018-12-15] MEDS: Meclizine 25mg tab ORAL SCH ×4 (05:32→23:49)
[2018-12-15 06:51] LABS: ANION GAP 8 mmol/L (5-15); BLOOD UREA NITROGEN 11 mg/dL (7-18); CALCIUM 8.9 MG/DL (8.5-10.1); CARBON DIOXIDE 28 MMOL/L (21-32); CHLORIDE 108 MMOL/L (98-107); CREATININE 0.8 MG/DL (0.55-1.30); POTASSIUM 3.6 MMOL/L (3.5-5.1); SODIUM 143 MMOL/L (136-145)
[2018-12-15 06:58] LABS: EOSINOPHILS % (AUTO) 1.9 % (0.0-3.0); HEMATOCRIT 38.4 % (37.0-47.0); HEMOGLOBIN 13.3 G/DL (12.0-16.0); LYMPHOCYTES % (AUTO) 40.4 % (20.0-45.0); MEAN CORPUSCULAR VOLUME 92 FL (80-99); MONOCYTES % (AUTO) 6.1 % (1.0-10.0); NEUTROPHILS % (AUTO) 50.6 % (45.0-75.0); PLATELET COUNT 219 K/UL (150-450); RED CELL DISTRIBUTION WIDTH 11.7 % (11.6-14.8); WHITE BLOOD COUNT 5.8 K/UL (4.8-10.8)
--- NOTE | 2018-12-15 07:22 | NUR ---
HAND-OFF: Report given to Jayden DODD.
--- NOTE | 2018-12-15 07:27 | NUR ---
NURSE NOTES: received report from YOUSIF Beltran. patient in bed. sleeping. no respiratory distress noted. bed in the lowest position. call light within reach. will continue to monitor.
[2018-12-15 08:00] VITALS: BP 112/71
[2018-12-15] MEDS: Docusate 100mg cap ORAL SCH ×2 (09:16→20:38)
[2018-12-15] MEDS: Pantoprazole Inj IVP SCH (09:16)
[2018-12-15] MEDS: Heparin 5000 units/ml inj SUBQ SCH ×2 (09:18→20:38)
[2018-12-15 12:00] VITALS: BP 123/79
--- NOTE | 2018-12-15 13:22 | General Progress Note ---
Assessment/Plan Status: progressing Status Narrative 58 year old woman with GERD, HTN who presents with intractable vertigo Assessment/Plan #Intractable vertigo, improved -continue supportive care with IV fluids, anti-emetics, meclizine -MRI brain results without acute findings -Neurology following -PT/OT eval #GERD #Nausea vomiting and GI discomfort, non contrast CT negative -improving -continue supportive care -IV fluids, anti-emetics, Protonix -advanced diet #History of HTN, controlled -continue to monitor pressures VTE PPx heparin Full Code Disposition: Once the patient is stable to leave the hospital, I anticipate the patient will likely be discharged to the following environment:Home I spent 45 minutes on this patient's case, and 23 minutes was dedicated to counseling and/or care coordination. Time of note may not reflect time of encounter. Subjective Date patient seen: Dec 15, 2018 Time patient seen: 13:22 ROS Limited/Unobtainable: No Constitutional: Reports: no symptoms, malaise, weakness HEENT: Reports: other - vertigo Respiratory: Reports: no symptoms Gastrointestinal/Abdominal: Reports: no symptoms Genitourinary: Reports: no symptoms Neurologic/Psychiatric: Reports: no symptoms Endocrine: Reports: no symptoms Hematologic/Lymphatic: Reports: no symptoms Allergies: Coded Allergies: No Known Allergies (Unverified , 12/12/18) Subjective Events of overnight noted Chart reviewed Vertigo improving somewhat No vomiting overnight Patient resting Objective Last 24 Hour Vital Signs Date Time Temp Pulse Resp B/P (MAP) Pulse Ox O2 Delivery O2 Flow Rate FiO2 12/15/18 09:00 Room Air 12/15/18 08:00 97.5 59 18 112/71 (85) 96 12/15/18 04:00 97.5 55 18 109/66 (80) 96 12/15/18 00:00 98.1 56 16 97/63 (74) 94 12/14/18 21:00 Room Air 12/14/18 20:00 98.3 65 18 108/72 (84) 99 12/14/18 17:44 98.0 12/14/18 16:00 98.5 69 16 105/74 (84) 95 Intake and Output 12/14/18 12/15/18 18:59 06:59 Intake Total 960 ml 280 ml Balance 960 ml 280 ml Intake Oral 960 ml 280 ml # Voids 3 2 Laboratory Tests 12/15/18 05:25: White Blood Count 5.8, Red Blood Count 4.20, Hemoglobin 13.3, Hematocrit 38.4, Mean Corpuscular Volume 92, Mean Corpuscular Hemoglobin 31.6H, Mean Corpuscular Hemoglobin Concent 34.5, Red Cell Distribution Width 11.7, Platelet Count 219, Mean Platelet Volume 6.7, Neutrophils (%) (Auto) 50.6, Lymphocytes (%) (Auto) 40.4, Monocytes (%) (Auto) 6.1, Eosinophils (%) (Auto) 1.9, Basophils (%) (Auto ) 1.0, Sodium Level 143, Potassium Level 3.6, Chloride Level 108H, Carbon Dioxide Level 28, Anion Gap 8, Blood Urea Nitrogen 11, Creatinine 0.8, Estimat Glomerular Filtration Rate > 60, Glucose Level 91, Calcium Level 8.9 Height (Feet): 5 Height (Inches): 1.00 Weight (Pounds): 135 Joe Max MD Dec 15, 2018 13:22
--- NOTE | 2018-12-15 14:17 | NUR ---
CASE MANAGEMENT: REVIEW 12/15/2018 SI:VERTIGO T 98.1 HR 66 RR 18 B/P 123/79 SATS 96% ON RA CL 108 IS:PROTONIX IV QD ANTIVERT PO Q6H MED/SURG STATUS PLAN OF CARE: PT EVAL NEURO CHECKS
--- NOTE | 2018-12-15 15:43 | Neurology Progress Note ---
Interim History Interim History ROS Limited/Unobtainable: No Complaints: Vertigo Events: Significantly improved today. Ambulating and eating. Review of Systems Neuro Review of Systems Negative for dizziness/vertigo, nausea, vomiting, or neck pain/spasm. Now complaining of ear pain. All Systems: reviewed and negative except above Objective Physical Exam Last Vital Signs Date Time Temp Pulse Resp B/P (MAP) Pulse Ox O2 Delivery O2 Flow Rate FiO2 12/15/18 12:00 98.1 66 18 123/79 (94) 96 12/15/18 09:00 Room Air Laboratory Tests Test 12/15/18 05:25 White Blood Count 5.8 K/UL (4.8-10.8) Red Blood Count 4.20 M/UL (4.20-5.40) Hemoglobin 13.3 G/DL (12.0-16.0) Hematocrit 38.4 % (37.0-47.0) Mean Corpuscular Volume 92 FL (80-99) Mean Corpuscular Hemoglobin 31.6 PG (27.0-31.0) H Mean Corpuscular Hemoglobin Concent 34.5 G/DL (32.0-36.0) Red Cell Distribution Width 11.7 % (11.6-14.8) Platelet Count 219 K/UL (150-450) Mean Platelet Volume 6.7 FL (6.5-10.1) Neutrophils (%) (Auto) 50.6 % (45.0-75.0) Lymphocytes (%) (Auto) 40.4 % (20.0-45.0) Monocytes (%) (Auto) 6.1 % (1.0-10.0) Eosinophils (%) (Auto) 1.9 % (0.0-3.0) Basophils (%) (Auto) 1.0 % (0.0-2.0) Sodium Level 143 MMOL/L (136-145) Potassium Level 3.6 MMOL/L (3.5-5.1) Chloride Level 108 MMOL/L (98-107) H Carbon Dioxide Level 28 MMOL/L (21-32) Anion Gap 8 mmol/L (5-15) Blood Urea Nitrogen 11 mg/dL (7-18) Creatinine 0.8 MG/DL (0.55-1.30) Estimat Glomerular Filtration Rate > 60 mL/min (>60) Glucose Level 91 MG/DL (74-106) Calcium Level 8.9 MG/DL (8.5-10.1) General: well developed, well nourished, no acute distress Head: normocophalic, atraumatic Neck: no rigidity EENT: benign Neurologic Exam Mental Status: awake, alert, oriented x4, normal cognition, normal recent memory Speech: normal speech Language: normal language, no aphasia Cranial Nerve II: visual barnes, no papilledema Cranial Nerves III, IV, : PERRLA, EOMI Cranial Nerve V: normal facial sensations Cranial Nerve VII: no facial asymmetry Cranial Nerve VIII: normal hearing Cranial Nerve IX: normal palate elevation Cranial Nerve X: no voice hoarseness Cranial Nerve XI: SCM symmetric Cranial Nerve XII: tongue midline, no tongue atrophy/fasciculations Motor System: normal muscle tone, strength 5/5, no involuntary movement, no muscle wasting Sensory: normal pinprick, normal light touch, normal position sense, normal graphesthesia Coordination: normal finger to nose bilaterally, normal heel to beltran bilaterally, negative Romberg test Stance: normal Gait: stable, heel + toe gait - A little shaky but able to do, other - Broad based gait Impression/Recommendations Problems: (1) Vertigo Assessment & Plan: Resolved. Discussed seeking care if these symptoms reoccur and follow up with her PCP. She may take a prescription home of meclizine (25-100mg divided bid-tid) as needed, if she has any ongoing symptoms. MRI with mildly depressed cerebellar tonsils- discuss with radiology for exact length of depression. Unable to reach anyone in radiology- called twice. Old number listed on report- no longer in service and no voicemail for new number available. (2) Intractable vomiting Assessment & Plan: Resolved. (3) HTN (hypertension) Assessment & Plan: Control BP and maintain < 140/90 (4) TIA (transient ischemic attack) Assessment & Plan: Reported past episode of several hours of face, arm and leg weakness on her right side but states that she never reported it. No evidence of acute or chronic CVA/ recent TIA on MRI. (5) Muscle spasms of neck Assessment & Plan: Recommend 3-5 day trial of spasmolytic. Will prescribed Flexeril 10mg TID. May send home with limited rx if relief from this overnight. Okay for discharge from a neurological perspective. Instructions given to patient to follow up with MRI Brain again in 1 year as well as follow up with primary. Status: doing well Diagnostic Impression Get up with PT/OT for eval Discuss MRI with radiology re Cerebellar tonsil finding Continue Q4 Hr Neuro Obs May discharge with prescription of Meclizine 25mg #15 and Flexeril 10mg #15 - have communicated this to primary team and patient. Recommendations At minimum will need to follow up with Neuro as outpatient and MRI repeat again in 1 year. Okay for discharge from a neurological perspective. Pamela Hu N.P. Dec 15, 2018 15:43
[2018-12-15 16:00] VITALS: BP 130/83
--- NOTE | 2018-12-15 19:05 | NUR ---
HAND-OFF: Report given to YOUSIF Beltran.
--- NOTE | 2018-12-15 19:30 | NUR ---
NURSE NOTES: PATIENT IN BED, ASLEEP. ON RA, NO SOB, NO ACUTE DISTRESS, NO C/O PAIN. LH IV INTACT, PATENT, SALINE LOCK. IN STABLE CONDITION. BED IN LOWEST POSITION, LOCKED, ALARMS ON. CALL LIGHT IN REACH.
[2018-12-15 20:00] VITALS: BP 110/73
[2018-12-16] VITALS: BP 104/65
[2018-12-16 04:00] VITALS: BP 102/68
[2018-12-16] MEDS: Meclizine 25mg tab ORAL SCH ×3 (06:12→17:11)
--- NOTE | 2018-12-16 07:26 | NUR ---
HAND-OFF: Report given to Jo DODD.
--- NOTE | 2018-12-16 07:29 | NUR ---
NURSE NOTES: Received report from YOUSIF Beltran. Pt ambulating in the halls, spoke with pt, pt denies pain, vertigo, dizziness, nausea, numbness or tingling. Pt's room in clean and free from clutter, bed in lowest position, call light on the bed.
[2018-12-16 08:00] VITALS: BP 125/85
[2018-12-16] MEDS: Pantoprazole Inj IVP SCH (08:09)
[2018-12-16] MEDS: Docusate 100mg cap ORAL SCH (08:09)
[2018-12-16] MEDS: Heparin 5000 units/ml inj SUBQ SCH (08:10)
--- NOTE | 2018-12-16 10:23 | Neurology Progress Note ---
Interim History Interim History ROS Limited/Unobtainable: No Complaints: Vertigo Events: No vomiting today. Ambulating and eating. Improneck spasm and pain. Waiting Objective Physical Exam Last Vital Signs Date Time Temp Pulse Resp B/P (MAP) Pulse Ox O2 Delivery O2 Flow Rate FiO2 12/16/18 09:00 Room Air 12/16/18 08:00 98.1 82 18 125/85 (98) 98 General: well developed, well nourished Head: normocophalic Neck: no rigidity EENT: benign Neurologic Exam Mental Status: awake, alert, oriented x4, normal cognition, normal recent memory Speech: normal speech Language: normal language, no aphasia Cranial Nerve II: visual barnes Cranial Nerves III, IV, : PERRLA, EOMI Cranial Nerve V: normal facial sensations Cranial Nerve VII: no facial asymmetry Cranial Nerve VIII: normal hearing Cranial Nerve IX: normal palate elevation Cranial Nerve X: no voice hoarseness Cranial Nerve XI: SCM symmetric Cranial Nerve XII: tongue midline Motor System: normal muscle tone, strength 5/5 Coordination: normal finger to nose bilaterally, normal heel to beltran bilaterally, negative Romberg test Stance: normal Gait: stable, heel + toe gait - A little shaky but able to do, other - Broad based gait Impression/Recommendations Status: progressing Recommendations ok to Constantine Toledo M.D. Dec 16, 2018 10:23
[2018-12-16 12:00] VITALS: BP 111/74
--- NOTE | 2018-12-16 13:36 | NUR ---
CASE MANAGEMENT: REVIEW SI: VERTIGO T 98.6 HR 59 RR 18 BP 104/65 SAT 95% ROOM AIR IS: ANTIVERT PO Q6HR PROTONIX IV QD PT EVAL MED/SURG STATUS DCP: PATIENT IS FROM HOME
--- NOTE | 2018-12-16 15:45 | Discharge Summary ---
Discharge Summary Hospital Course Date of Admission Dec 12, 2018 at 13:18 Date of Discharge 12/16/2018 Admitting Diagnosis vertigo HPI Mi Adam Fitch is a 58 year old female who was admitted on Dec 12, 2018 at 13:18 for Vertigo Consultations Neurology Hospital Course #Intractable vertigo, improved -continue supportive care with IV fluids, anti-emetics, meclizine -MRI brain results without acute findings -Neurology following -PT/OT eval #GERD #Nausea vomiting and GI discomfort, non contrast CT negative -improving -continue supportive care -IV fluids, anti-emetics, Protonix -advanced diet #History of HTN, controlled -continue to monitor pressures VTE PPx heparin Full Code Disposition: Once the patient is stable to leave the hospital, I anticipate the patient will likely be discharged to the following environment:Home I spent 45 minutes on this patient's case, and 23 minutes was dedicated to counseling and/or care coordination. Time of note may not reflect time of encounter. Discharge Condition Upon Discharge: improving Discharge Disposition Patient was discharged to Home Discharge Diagnoses: (1) Vertigo (2) Intractable vomiting (3) Muscle spasms of neck Joe Max MD Dec 16, 2018 15:45
[2018-12-16 16:00] VITALS: BP 120/78
--- NOTE | 2018-12-16 18:21 | NUR ---
NURSE NOTES: Pt discharged home with all belongings. Pt provided hand-written Rx from Dr. Max, and referred to ENT doctor, review all DC paperwork with pt, pt signed all documents. IV removed intact, ID band removed, pt ambulatory accompanied by friend, pt stable for discharge
== END 2018-12-16 18:40 | disposition home or self-care (01) | DRG 111 ==
LOC: EDBD 10:27 → EMR 10:57 → 4E 13:18 → EDBEDREQ 13:22
DX: R42 Dizziness and giddiness (principal); I10 Essential (primary) hypertension; K21.9 Gastro-esophageal reflux disease without esophagitis; R11.2 Nausea with vomiting, unspecified; M62.838 Other muscle spasm
CPT/HCPCS: 36415; 70450; 70553; 74176; 80048; 80053; 81003; 83690; 84443; 84484; 85025; 93005; 96361; 96374; 99284; A9585; J2405